=== PATIENT | male | born 1960 | race Caucasian/White ===

== ENCOUNTER → 2020-08-26 | Outpatient (CLI) | payer OTHER ==
--- NOTE | 2020-08-31 16:25 | SLEEPCENT ---
NOCTURNAL POLYSOMNOGRAPHY DATE: 08/26/2020 ORDERED BY: LANCE Price Diagnostic nocturnal polysomnography was performed for evaluation of sleep physiology in this patient with a history of excessive somnolence and nonrestorative sleep. 6 hours and 39 minutes of data were reviewed. There were 314.5 minutes of sleep identified. Sleep latency was prolonged at 58 minutes. REM latency was short at 19 minutes. Sleep architecture was fairly well maintained. There was some fragmentation, but four REM cycles were noted. Overall sleep efficiency was 79.9%. The electrocardiogram showed a sinus rhythm with an average heart rate of 60 beats per minute. EEG showed normal waveforms for wake and sleep. There were 276 respiratory events identified of 10 seconds in duration or greater for an apnea-hypopnea index of 52.7. The events were primarily obstructive, not exclusive to sleep stage nor body position. Arousals from respiratory events occurred 15.5 times per hour and oxygen desaturations were seen into the 70s. There was some minor activity in the limb leads. Remaining measures of sleep physiology were normal. IMPRESSION: Severe obstructive sleep apnea syndrome (G47.33), apnea-hypopnea index 52.7. RECOMMENDATION: The patient should be encouraged to return to [facility] for [facility]. In the interim, alcohol and sedative avoidance should be practiced and caution exercised during the operation of motor vehicles.
== END ==
LOC: M SLEEP 22:00
PROVIDERS: ATTEND Physician Assistant
DX: G47.33 Obstructive sleep apnea (adult) (pediatric) (principal)

== ENCOUNTER → 2020-10-26 | Outpatient (CLI) | payer OTHER | LOC: M SLEEP 20:00 | PROVIDERS: ATTEND Physician Assistant | DX: G47.33 Obstructive sleep apnea (adult) (pediatric) (principal) ==

== ENCOUNTER → 2023-06-03 | Outpatient (CLI) | payer BC | LOC: M SLEEP 20:00 | PROVIDERS: ATTEND Physician Assistant | DX: G47.33 Obstructive sleep apnea (adult) (pediatric) (principal) ==